=== PATIENT | male | born 1960 | race Caucasian/White ===

== ENCOUNTER 2021-01-06 11:38 | Emergency (ER) | payer BC, OTHER ==
[~2021-01-06 11:38] MED LIST: Amoxicillin 500 MG Cap ONE
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
[2021-01-06] MEDS: Amoxicillin 500 MG Cap PO ONE (15:37)
[2021-01-06] MEDS: Bacitracin Oint 1 GM U/D Packet TOP ONE (15:37)
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
== END 2021-01-06 13:20 | disposition home or self-care (01) ==
LOC: LB.ED 11:38
DX: S02.2XXA Fracture of nasal bones, initial encounter for closed fracture (principal); S02.19XA Other fracture of base of skull, initial encounter for closed fracture; S00.83XA Contusion of other part of head, initial encounter; V49.49XA Driver injured in collision with other motor vehicles in traffic accident, initial encounter; Y92.410 Unspecified street and highway as the place of occurrence of the external cause
CPT/HCPCS: 70450; 99284-25; A9270-GY